=== PATIENT | male | born 1975 | race Two or more races ===

== ENCOUNTER 2019-06-13 16:03 | Outpatient (CLI) | payer OTHER | END 2019-06-13 16:30 | disposition home or self-care (01) | LOC: RAD 16:03 | DX: S52.211D Greenstick fracture of shaft of right ulna, subsequent encounter for fracture with routine healing (principal); S62.511D Displaced fracture of proximal phalanx of right thumb, subsequent encounter for fracture with routine healing ==

== ENCOUNTER 2019-07-04 14:41 | Outpatient (CLI) | payer OTHER | END 2019-07-04 14:45 | disposition home or self-care (01) | LOC: RAD 14:41 | DX: S52.601D Unspecified fracture of lower end of right ulna, subsequent encounter for closed fracture with routine healing (principal); S62.511D Displaced fracture of proximal phalanx of right thumb, subsequent encounter for fracture with routine healing ==

== ENCOUNTER 2019-08-15 16:30 | Outpatient (CLI) | payer OTHER | END 2019-08-15 17:02 | disposition home or self-care (01) | LOC: RAD 16:30 | DX: S62.511D Displaced fracture of proximal phalanx of right thumb, subsequent encounter for fracture with routine healing (principal) ==

== ENCOUNTER → 2021-02-07 | Outpatient (CLI) | payer OTHER | END | disposition home or self-care (01) | LOC: RAD 10:47 → MAMO-SONO 02-12 08:15 | PROVIDERS: ATTEND General Practice | DX: M75.21 Bicipital tendinitis, right shoulder (principal); I10 Essential (primary) hypertension ==

== ENCOUNTER → 2021-02-12 | Outpatient (CLI) | payer OTHER | END | disposition home or self-care (01) | LOC: SONOGRAMA 09:09 | PROVIDERS: ATTEND General Practice | DX: M75.21 Bicipital tendinitis, right shoulder (principal); M75.101 Unspecified rotator cuff tear or rupture of right shoulder, not specified as traumatic ==